=== PATIENT | male | born 1955 | race Caucasian/White ===

== ENCOUNTER 2020-05-26 13:32 | Emergency (ER) | payer MEDICARE, MEDICAID ==
[~2020-05-26] VITALS: Ht 167.6 cm; Wt 66.5 kg
[2020-05-26 14:47] LABS: BASOPHILS % (AUTO) 0 % (0-1); EOSINOPHILS % (AUTO) 1 % (1-7); LYMPHOCYTES % (AUTO) 17 % (22-44); MEAN CORPUSCULAR HEMOGLOBIN 26.8 pg (27.5-34.5); MEAN CORPUSCULAR HGB CONC 32.1 g/dL (33.2-36.2); MEAN PLATELET VOLUME 7.8 fL (7.4-10.4); MONOCYTES % (AUTO) 12 % (2-9); NEUTROPHILS % (AUTO) 70 % (42-75); PLATELET COUNT 319 x10^3/uL (130-400); RED BLOOD COUNT 4.65 x10^6/uL (4.38-5.82); RED CELL DISTRIBUTION WIDTH 14.9 % (9.4-14.8)
[2020-05-26 14:51] LABS: MD NO
--- NOTE | 2020-05-26 14:51 | NUR ---
PT AWARE OF NEED TO PROVIDE URINE AND STOOL SAMPLE. VSS, NAD NOTED, WARM BLANKETS PROVIDED. CALL LIGHT W/I REACH
[2020-05-26 14:55] LABS: ALANINE AMINOTRANSFERASE 15 U/L (12-78); ALBUMIN 3.3 g/dL (3.4-5.0); ANION GAP 4 mmol/L (5-15); CALCIUM 8.6 mg/dL (8.5-10.1); CHLORIDE 111 mmol/L (98-107); CREATININE 0.87 mg/dL (0.7-1.3)
[2020-05-26 14:57] LABS: ALKALINE PHOSPHATASE 99 U/L (45-117); BILIRUBIN,TOTAL 0.6 mg/dL (0.2-1.0); TOTAL PROTEIN 6.9 g/dL (6.4-8.2)
[2020-05-26 16:14] LABS: MICROSCOPIC AUTO
--- NOTE | 2020-05-26 17:22 | NUR ---
PT WITH INCONTINENT WITH EXPLOSSIVE PURE LIQUID DIARRHEA. [facility] COLLECTED AND SENT TO LAB. PROVIDER INFORMED. PT AMB TO SHOWER ROOM.
[2020-05-26] MEDS ORDERED: CIPROFLOXACIN 500 MG TABLET PO ONE (17:30)
--- NOTE | 2020-05-26 17:35 | NUR ---
PT RTD TO ROOM W/O INCIDENT.
[2020-05-26] MEDS ORDERED: CIPROFLOXACIN 500 MG TABLET ONE (17:44)
--- NOTE | 2020-05-26 17:52 | NUR ---
PT MED NOTED. CLEAN PANTS AND A WARM SWEATER PROVIDED.
[2020-05-26 18:22] LABS: CLOSTRIDIUM DIFFICILE ANTIGEN NEGATIVE; CLOSTRIDIUM DIFFICILE TOXIN NEGATIVE (Negative)
[2020-05-26 18:30] VITALS: BP 162/80
--- NOTE | 2020-05-26 18:52 | NUR ---
Patient/Caregiver given discharge instructions and they have confirmed that they understand the instructions. Patient ambulatory with steady gait.
== END 2020-05-26 18:53 | disposition home or self-care (01) ==
LOC: ED 14:22
DX: R19.7 Diarrhea, unspecified (principal); R10.84 Generalized abdominal pain; R11.2 Nausea with vomiting, unspecified; F17.210 Nicotine dependence, cigarettes, uncomplicated
CPT/HCPCS: 36415; 80053; 81001; 85025; 87324; 89055; 99283; 99406

== ENCOUNTER 2020-09-27 18:42 | Emergency (ER) | payer MEDICARE, MEDICAID ==
--- NOTE | 2020-09-27 18:48 | NUR ---
REPORT FROM [facility]UMED CARE OF PT
[2020-09-27 19:01] VITALS: BP 155/88
[2020-09-27 19:22] LABS: BASOPHILS % (AUTO) 1 % (0-1); EOSINOPHILS % (AUTO) 2 % (1-7); LYMPHOCYTES % (AUTO) 27 % (22-44); MD NO; MEAN CORPUSCULAR HEMOGLOBIN 27.5 pg (27.5-34.5); MEAN CORPUSCULAR HGB CONC 32.9 g/dL (33.2-36.2); MEAN PLATELET VOLUME 7.6 fL (7.4-10.4); MONOCYTES % (AUTO) 11 % (2-9); NEUTROPHILS % (AUTO) 59 % (42-75); PLATELET COUNT 278 x10^3/uL (130-400); RED CELL DISTRIBUTION WIDTH 15.6 % (9.4-14.8)
[2020-09-27 19:30] LABS: ALBUMIN 3.3 g/dL (3.4-5.0); ANION GAP 8 mmol/L (5-15); CALCIUM 8.3 mg/dL (8.5-10.1); CHLORIDE 112 mmol/L (98-107); CREATININE 0.95 mg/dL (0.7-1.3)
--- NOTE | 2020-09-27 21:02 | NUR ---
UP[N D/C PT STARTED SCREAMING AND THROWING RINGS IN ROOM, SECURITY NOTIFIED AND ESCORTED PT OUT
== END 2020-09-27 21:20 | disposition home or self-care (01) ==
LOC: ED 21:16
DX: K40.91 Unilateral inguinal hernia, without obstruction or gangrene, recurrent (principal); R94.31 Abnormal electrocardiogram [ECG] [EKG]; I10 Essential (primary) hypertension; F17.200 Nicotine dependence, unspecified, uncomplicated; Y04.8XXA Assault by other bodily force, initial encounter; Y93.89 Activity, other specified; Y92.009 Unspecified place in unspecified non-institutional (private) residence as the place of occurrence of the external cause; Y99.8 Other external cause status
CPT/HCPCS: 36415; 80048; 82040; 85025; 93005; 99284

== ENCOUNTER 2021-01-26 17:26 | Emergency (ER) | payer MEDICAID, MEDICARE ==
--- NOTE | 2021-01-26 17:46 | NUR ---
NA X1
[2021-01-26 18:52] LABS: BASOPHILS % (AUTO) 1 % (0-1); EOSINOPHILS % (AUTO) 2 % (1-7); LYMPHOCYTES % (AUTO) 27 % (22-44); MEAN CORPUSCULAR HEMOGLOBIN 27.4 pg (27.5-34.5); MEAN CORPUSCULAR HGB CONC 33.2 g/dL (33.2-36.2); MEAN PLATELET VOLUME 7.8 fL (7.4-10.4); MONOCYTES % (AUTO) 10 % (2-9); NEUTROPHILS % (AUTO) 60 % (42-75); PLATELET COUNT 290 x10^3/uL (130-400); RED BLOOD COUNT 4.99 x10^6/uL (4.38-5.82); RED CELL DISTRIBUTION WIDTH 15.7 % (9.4-14.8)
[2021-01-26] MEDS ORDERED: HYDROmorphone 1 MG/ML, 1ML INJ IM ONE (19:00)
[2021-01-26] MEDS ORDERED: ONDANSETRON ODT 4 MG PO ONE (19:00)
[2021-01-26 19:02] LABS: ALANINE AMINOTRANSFERASE 18 U/L (12-78); ALBUMIN 3.2 g/dL (3.4-5.0); ANION GAP 4 mmol/L (5-15); CALCIUM 8.6 mg/dL (8.5-10.1); CHLORIDE 111 mmol/L (98-107)
[2021-01-26] MEDS ORDERED: HYDROmorphone 1 MG/ML, 1ML INJ ONE (19:04)
[2021-01-26] MEDS ORDERED: ONDANSETRON ODT 4 MG ONE (19:04)
[2021-01-26 19:05] LABS: ALKALINE PHOSPHATASE 102 U/L (45-117); BILIRUBIN,TOTAL 0.3 mg/dL (0.2-1.0); TOTAL PROTEIN 6.7 g/dL (6.4-8.2)
[2021-01-26 20:06] VITALS: BP 152/91
== END 2021-01-26 20:07 | disposition home or self-care (01) ==
LOC: ED 19:45
DX: K40.91 Unilateral inguinal hernia, without obstruction or gangrene, recurrent (principal); F15.20 Other stimulant dependence, uncomplicated; F17.210 Nicotine dependence, cigarettes, uncomplicated; I10 Essential (primary) hypertension; Z91.14 Patient's other noncompliance with medication regimen
CPT/HCPCS: 36415; 80053; 85025; 96372; 99283; 99406; J1170; Q0162; 99284